=== PATIENT | male | born 1985 | race Two or more races ===

== ENCOUNTER 2023-07-17 12:49 | Day surgery (SDC) | payer OTHER, SELFPAY ==
[2023-07-17] VITALS (13 sets, daily range): BP systolic 107–126; BP diastolic 60–78; PULSE 81–97; RESP 16–20; TEMP 36.3–36.9; O2SAT 94–100; BMI 25.3
--- NOTE | ~2023-07-17 | CT_ITS ---
EXAMINATION: CT ABDOMEN AND PELVIS WITH CONTRAST CLINICAL INFORMATION: Lower abdominal pain. Night sweats. Diarrhea. COMPARISON: None. TECHNIQUE: Multidetector CT volumetric acquisition of the abdomen and pelvis was performed after the administration of 85 mL of intravenous Omnipaque 300. The data set was reformatted in the sagittal and coronal planes and reviewed on an independent workstation. This CT examination was performed using dose optimization techniques as appropriate, variously including the following: *Automated exposure control *Adjustment of mA and/or kV according to patient size (this includes techniques or standardized protocols for targeted exams where dose is matched to indication/reason for exam; i.e. extremities or head) *Use of iterative reconstruction technique DLP: 458.21 mGy-cm. FINDINGS: LOWER CHEST: Included lung bases unremarkable. LIVER, GALLBLADDER, BILIARY TREE: Liver normal size and attenuation. No focal cystic or solid mass or intra-or extrahepatic ductal dilatation. Hepatic and portal veins patent. Gallbladder partially distended. There may be subtle adenomyomatosis involving the gallbladder fundus. PANCREAS: Normal. No ductal dilatation, mass, or surrounding stranding. SPLEEN: Normal size and appearance. Splenic vein patent. ADRENAL GLANDS AND KIDNEYS: Adrenal glands normal. Kidneys bilaterally symmetric in size and function. No focal mass, hydronephrosis, nephrolithiasis or perinephric stranding. URETERS AND BLADDER: Ureters decompressed and within normal limits. Bladder partially distended and within normal limits. PELVIC ORGANS: Unremarkable. GASTROINTESTINAL TRACT: The appendix is abnormally dilated and fluid-filled, measuring up to 1 cm in diameter and demonstrating ill-defined circumferential enhancement and surrounding fat stranding and edema. Findings are consistent with acute appendicitis with surrounding mild phlegmonous changes but no focal abscess collection or appendiceal perforation. Small and large bowel loops decompressed. LYMPHOVASCULAR STRUCTURES: Abdominal aorta normal in caliber. No periaortic collections. No abdominal or pelvic adenopathy or free fluid collection. BONES: Unremarkable. CT/CT abdomen pelvis w IV con IMPRESSION: Findings are consistent with acute uncomplicated appendicitis. 3:15 PM This critical result was discussed with Dr. Lexi Batres 07/17/2023, and it was ascertained that the content and urgency of this report was understood at the time of direct communication.
[2023-07-17 13:12] LABS: MANUAL DIFF FLAG NO
[2023-07-17] MEDS: ondansetron HCL 4 MG/2 ML VIAL IVPUSH (13:22)
[2023-07-17] MEDS: HYDROmorphone HCl 0.5 MG/0.5 ML SYRINGE IVPUSH (13:22)
[2023-07-17] MEDS: 0.9 % Sodium Chloride 1,000 ML 999 ML IV ×2 (13:22)
[2023-07-17 13:23] LABS: Basophils Percent Auto 0.2 % (0-2); Eosinophils Absolute Auto 0.1 X10*3/uL (0.0-0.4); Eosinophils Percent Auto 0.5 % (0-4); Hematocrit 42.1 % (42.0-52.0); Hemoglobin 14.2 g/dl (14.0-18.0); Imm Gran Abs Auto 0.06 X10*3/uL (0.00-0.03); Imm Gran Pct Auto 0.4 % (0.0-0.4); Lymphocytes Absolute Auto 1.2 X10*3/uL (1.2-4.9); Lymphocytes Percent Auto 8.8 % (20-40); Mean Corpuscular HGB Conc 33.7 g/dl (31.0-36.0); Mean Corpuscular Hemoglobin 28.6 pg (27.0-33.0); Mean Corpuscular Volume 84.9 fL (80.0-98.0); Monocytes Absolute Auto 0.8 X10*3/uL (0.1-1.2); Monocytes Percent Auto 6.1 % (2-11); Neutrophils Absolute Auto 11.5 x10*3/uL (2.0-8.3); Platelet Count 165 X10*3/uL (160-400); Red Blood Count 4.96 X10*6/uL (4.60-5.80); Red Cell Distribution Width 13.3 % (11.0-16.0); White Blood Count 13.7 X10*3/uL (4.8-10.8)
[2023-07-17 13:25] LABS: Lactic Acid 0.8 mmol/L (0.5-2.0)
[2023-07-17 13:37] LABS: Alanine Aminotransferase 21 U/L (0-40); Albumin Level 4.5 g/dL (3.5-5.0); Alkaline Phosphatase 59 U/L (39-117); Anion Gap 12 (12-20); Aspartate Amino Transferase 15 U/L (5-37); Bilirubin Direct 0.4 mg/dL (0.0-0.5); Bilirubin Total 1.4 mg/dL (0.0-1.0); Blood Urea Nitrogen 12 mg/dL (9-16); C Reactive Protein 26.26 mg/dL (< or = 0.50); Calcium 9.9 mg/dL (8.4-10.2); Carbon Dioxide 27 mmol/L (22-29); Chloride 104 mmol/L (96-108); Estimated Glomerular Filt Rate > 60; Glucose Random 94 mg/dL (60-115); Iron 20 mcg/dL (45-160); Lipase 26 U/L (8-78); Magnesium 1.8 mg/dL (1.6-2.6); Percent Iron Saturation 10 % (15-50); Sodium 139 mmol/L (135-145); Total Iron Binding Capacity 200 mcg/dL (228-428); Total Protein 7.9 g/dL (6.5-8.0); Unsaturated Iron Binding 180 ug/dL
--- NOTE | 2023-07-17 13:43 | ED.ABDPAIN ---
HPI - Abdominal Pain General Chief Complaint: Abdominal Pain Stated Complaint: acute abd pain Time Seen by Provider: 07/17/23 12:54 Source: patient and family Mode of arrival: ambulatory Limitations: no limitations History of Present Illness HPI narrative: 37 yo male no sig PMH here with c/o intermittent bouts of diffuse abdominal pain and diarrhea with night sweats that have happened 4 separate times since January each episode lasts 48 hours. This time the pain is so severe he cannot take it. He has loose stools as well. No prior work up, colonoscopy, hx of IBD in family. He denies travel or antibiotic use. MD elicited complaint: abdominal pain Pertinent past history: none Onset (ago): month(s) (months since January but started 48 hours ago this bout) Pain Consistency: colicky Location: diffuse Severity: severe Quality: cramping and stabbing Radiation: none Migration to: no migration Relieving factors: eating and movement Context: history of similar episodes Associated symptoms: nausea, chills and other (night sweats, loose stools) Related Data Allergies Allergy/AdvReac Type Severity Reaction Status Date / Time No Known Allergies Allergy Verified 07/17/23 12:53 Review of Systems Review of Systems Constitutional : No Weight loss, No Fever, pos Chills, pos sweats ENT/Mouth : No sore throat, No Rhinorrhea Eyes: No Swelling, No Redness Cardiovascular : No Chest Pain, No SOB, NoEdema Respiratory : No Cough, No Sputum, No Wheezing Gastrointestinal : Positive Nausea, no Vomiting, positive Diarrhea, positive abdominal Pain, No Hematochezia, No Melena Genitourinary : No Dysuria, No Urinary Frequency, No Hematuria, No Urgency Musculoskeletal : No joint pain, No Myalgias, No Joint Swelling Skin : No Skin Lesions, No rash Neuro : pos Weakness, No Numbness, No Dizziness, No Headache Psych : No Anxiety/Panic, No Depression All other systems reviewed and are negative. [facility] Past Medical History Attestation statement: The following information was validated with the patient. Source: old records reviewed Medical History High cholesterol Social History Social History Smoked in Last 30 Days: No Use of substances other than those prescribed or required for medical reasons: No Advance Directives: No Advance Directives Information Provided: Yes Physical Exam ED Vital Signs: Vital Signs - 24 hr 07/17/23 12:54 Pulse Rate 86 Respiratory Rate 18 Blood Pressure 124/77 Pulse Oximetry 100 Oxygen Delivery Method Room Air BMI result Body Mass Index 25.3 Appearance: Alert. Oriented X3. mild acute distress. Eyes: Pupils equal, round and reactive to light. ENT: Pharynx normal. Neck: Normal inspection. Neck supple. CVS: Normal heart rate and rhythm. Pulses normal. Respiratory: No respiratory distress. Breath sounds normal. Abdomen: Soft and diffuse ttp positive rebound no guaring Skin: Skin warm and dry. pale skin color. Normal skin turgor. Extremities: No lower extremity edema. No calf ttp Neuro: Oriented X 3. No motor deficit. No sensory deficit. Medical Decision Making Medical Decision Making [facility] Narrative: 37 yo male no sig PMH here with c/o intermittent bouts of abdominal pain loose stools has no known PMH and no prior work up no travel or food exposures at this time labs, IVF, IV dilaudid, CT scan ordered for possible mass, inflammatory bowel disease, appendicitis, or any other concerns. Differential Diagnosis Differential Diagnoses: The differential diagnosis associated with the presentation includes IBD, IBS, abdominal pain Admission/Observation Consideration of admission/observation: Escalation of care including admission/observation considered admit for acute appendicitis - surgery has seen patient Consult Healthcare Provider Management of the patient was discussed with: Jelly Filter Tender (Dr. Silva aware will admit) Lab Data [facility] Lab Attestation statement: I reviewed the patient's lab results. 07/17/23 13:06 07/17/23 13:06 Labs: Lab Results 07/17/23 Range/Units 13:06 WBC 13.7 H (4.8-10.8) X10*3/uL RBC 4.96 (4.60-5.80) X10*6/uL Hgb 14.2 (14.0-18.0) g/dl Hct 42.1 (42.0-52.0) % MCV 84.9 (80.0-98.0) fL MCH 28.6 (27.0-33.0) pg MCHC 33.7 (31.0-36.0) g/dl RDW 13.3 (11.0-16.0) % Plt Count 165 (160-400) X10*3/uL MPV 11.0 (9.4-12.4) fL Immature Gran % (Auto) 0.4 (0.0-0.4) % Neut % (Auto) 84.0 H (45-73) % Lymph % (Auto) 8.8 L (20-40) % [place] % (Auto) 6.1 (2-11) % Eos % (Auto) 0.5 (0-4) % Baso % (Auto) 0.2 (0-2) % Lymph # (Auto) 1.2 (1.2-4.9) X10*3/uL [place] # (Auto) 0.8 (0.1-1.2) X10*3/uL Eos # (Auto) 0.1 (0.0-0.4) X10*3/uL Baso # (Auto) 0.0 (0.0-0.2) X10*3/uL Abs Immat Gran (auto) 0.06 H (0.00-0.03) X10*3/uL Absolute Neuts (auto) 11.5 H (2.0-8.3) x10*3/uL Absolute Nucleated RBC 0.000 (0.0-0.012) X10*3/uL Nucleated RBC % (auto) 0.0 (0.0-0.2) /100WBC ESR 37 H (0-15) MM/HR Sodium 139 (135-145) mmol/L Potassium 4.0 (3.3-5.1) mmol/L Chloride 104 (96-108) mmol/L Carbon Dioxide 27 (22-29) mmol/L Anion Gap 12 (12-20) BUN 12 (9-16) mg/dL Creatinine 0.94 (0.5-1.4) mg/dL Estim Creat Clear Calc 111.0 Estimated GFR > 60 Random Glucose 94 (60-115) mg/dL Lactic Acid 0.8 (0.5-2.0) mmol/L Calcium 9.9 (8.4-10.2) mg/dL Magnesium 1.8 (1.6-2.6) mg/dL Iron 20 L (45-160) mcg/dL TIBC 200 L (228-428) mcg/dL % Saturation 10 L (15-50) % Unsat Iron Binding 180 ug/dL Ferritin 271 H (20-250) ng/mL Total Bilirubin 1.4 H (0.0-1.0) mg/dL Direct Bilirubin 0.4 (0.0-0.5) mg/dL AST 15 (5-37) U/L ALT 21 (0-40) U/L Alkaline Phosphatase 59 (39-117) U/L C-Reactive Protein 26.26 H (< or = 0.50) mg/dL Total Protein 7.9 (6.5-8.0) g/dL Albumin 4.5 (3.5-5.0) g/dL Lipase 26 (8-78) U/L Procalcitonin 0.55 ng/mL Independent Interpretation I performed an independent interpretation of an: CT Scan Radiology Impression Discussion of test interpretation with radiology: I discussed test interpretation with the radiologist and I have reviewed the radiologist's reading. Radiologist Impression: call from Radiology 316pm abnormality RLQ ?acute appendicitis dilated fluid appendix fat stranding and edema no abscess or perforation. Independent Historian Clinical information obtained from an independent historian. History obtained from or confirmed by: Parent Medications Administered Discontinued Medications Generic Name Dose Route Start Last Admin Trade Name Freq PRN Reason Stop Dose Admin Hydromorphone HCl 0.5 mg 07/17/23 12:54 07/17/23 13:22 Hydromorphone Hcl 0.5 Mg/0.5 Ml Syringe IVPUSH 07/17/23 12:55 0.5 mg ONCE ONE Administration Protocol Sodium Chloride 1,000 mls @ 999 mls/hr 07/17/23 13:00 07/17/23 13:22 Ns IV 07/17/23 14:00 999 mls/hr .Q1H1M DORCAS Administration Sodium Chloride 1,000 mls @ 999 mls/hr 07/17/23 13:00 07/17/23 13:22 Ns IV 07/17/23 14:00 999 mls/hr .Q1H1M DORCAS Administration Iohexol 85 ml 07/17/23 13:50 07/17/23 13:51 Iohexol 350 Mg/Ml 100 Ml Infus..Btl IV 07/17/23 13:51 85 ml ONCE ONE Administration Ondansetron HCl 4 mg 07/17/23 12:54 07/17/23 13:22 Ondansetron Hcl 4 Mg/2 Ml Vial IVPUSH 07/17/23 12:55 4 mg ONCE ONE Administration Critical Care Time Critical Care Time Critical Care Time: Yes Total Critical Care Time: 40 Attestation: IVF x 2L, pain improved after IV dilaudid I attest to this time spent taking care of the patient Discharge Plan Discharge Clinical Impression: Abdominal pain Qualifiers: Abdominal location: right lower quadrant Qualified Code(s): R10.31 - Right lower quadrant pain Acute appendicitis Qualifiers: Acute appendicitis type: with localized peritonitis Appendicitis gangrene presence: without gangrene Appendicitis perforation presence: without perforation Appendicitis abscess presence: without abscess Qualified Code(s): K35.30 - Acute appendicitis with localized peritonitis, without perforation or gangrene Patient Disposition: Admitted As Inpatient
[2023-07-17 13:51] LABS: Ferritin 271 ng/mL (20-250); Procalcitonin 0.55 ng/mL
[2023-07-17] MEDS: iohexoL 350 MG/ML 100 ML INFUS..BTL 85 ML IV (13:51)
[2023-07-17 14:08] LABS: Erythrocyte Sedimentation Rate 37 MM/HR (0-15)
[2023-07-17] MEDS: Piperacillin Sodium/Tazobactam 3.375 GM in 0.9 % Sodium Chloride 50 ML IV (15:41)
[2023-07-17] MEDS: 0.9 % Sodium Chloride 1,000 ML 100 ML IVCONT (15:50)
--- NOTE | 2023-07-17 16:46 | PC.NURSE ---
patient a&ox3, iv inserted, labs drawn, pt imaging done, pt iv abx hung per order, pt medicated with pain meds per order. pt changed over into hospital attire for OR, Dr. Silva came to bedside and transported patient himself to the OR with pts father, pts father took all belongings home--belonging list was not completed as the surgeon took the patient before it could be done.
--- NOTE | 2023-07-17 17:46 | PM.HPGS ---
History of Present Illness History of Present Illness Date of Service: 07/17/23 Chief complaint: acute abd pain Narrative: Ryanne Cueva is a 37 year old male with a history of several bouts of abdominal pain who presents here with any new bout which was of upper abdominal discomfort which has now relocated to the lower abdomen especially right lower quadrant. Because of progression of symptoms, he presented emergency department. Workup including CT scan of abdomen demonstrates findings consistent with acute appendicitis. Chart was reviewed patient evaluated [facility] Past Medical History Medical History High cholesterol Social History Social History Smoked in Last 30 Days: No Use of substances other than those prescribed or required for medical reasons: No Advance Directives: No Advance Directives Information Provided: Yes Meds Allergies Allergy/AdvReac Type Severity Reaction Status Date / Time No Known Allergies Allergy Verified 07/17/23 12:53 Active Medications: Current Medications Fentanyl (Fentanyl Citrate/Pf 100 Mcg/2 Ml Vial) 25 mcg IVPUSH Q5M PRN; Protocol PRN Reason: Pain, Moderate(Pain Scale 4-6) Sodium Chloride (Ns) 1,000 mls @ 100 mls/hr IVCONT .Q10H DORCAS Last Admin: 07/17/23 15:50 Dose: 100 mls/hr Ondansetron HCl (Ondansetron Hcl 4 Mg/2 Ml Vial) 4 mg IVPUSH ONCE PRN PRN Reason: Nausea and Vomiting Oxycodone HCl (Oxycodone Hcl Immed Release 5 Mg Tablet) 5 mg PO ONCE PRN PRN Reason: Pain, Severe (Pain Scale 7-10) Physical Exam Vital Signs: Vital Signs: Last Vital Signs Temp 98.4 F 07/17/23 15:53 Pulse 93 07/17/23 15:53 Resp 18 07/17/23 15:53 BP 113/78 07/17/23 15:53 Pulse Ox 99 07/17/23 15:53 O2 Del Method Room Air 07/17/23 15:53 BMI result Body Mass Index 25.3 Chest: Other: Chest breath sounds bilaterally, HS 1 in 2 GI: Other: Tender lower abdomen. Marked right lower quadrant rebound tenderness. Results Results Labs: Short CBC 07/17/23 Range/Units 13:06 WBC 13.7 H (4.8-10.8) X10*3/uL Hgb 14.2 (14.0-18.0) g/dl Hct 42.1 (42.0-52.0) % Plt Count 165 (160-400) X10*3/uL BMP 07/17/23 13:06 Sodium 139 Potassium 4.0 Chloride 104 Carbon Dioxide 27 BUN 12 Creatinine 0.94 Calcium 9.9 Liver Function 07/17/23 Range/Units 13:06 Total Bilirubin 1.4 H (0.0-1.0) mg/dL Direct Bilirubin 0.4 (0.0-0.5) mg/dL AST 15 (5-37) U/L ALT 21 (0-40) U/L Alkaline Phosphatase 59 (39-117) U/L Albumin 4.5 (3.5-5.0) g/dL Assessment and Plan (1) Acute appendicitis: Qualifiers: Acute appendicitis type: with localized peritonitis Appendicitis abscess presence: without abscess Appendicitis gangrene presence: without gangrene Appendicitis perforation presence: without perforation Qualified Code(s): K35.30 - Acute appendicitis with localized peritonitis, without perforation or gangrene Status: Acute Plan Clinical findings and CT scan consistent with acute appendicitis. Risks, benefits, alternatives of laparoscopic possible open appendectomy reviewed with the patient which included but not limited to bleeding, infection, numbness, pain, scarring and the patient was to proceed. All questions answered. Arrangements were made for this for today. Quality Stroke Does the patient have a stroke diagnosis?: No VTE Prior VTE?: No VTE Risk Level:: Surgical - low VTE Device Contraindication: Treatment Not Indicated VTE Drug Contraindication: Treatment Not Indicated Procedures Date of Service Date of Service: 07/17/23
--- NOTE | 2023-07-17 18:34 | W.PM.OPN ---
Operative Note Operative Note Date of Service: 07/17/23 Narrative: Preoperative diagnosis: [] Acute appendicitis Postop diagnosis: [] same Procedure [] laparoscopic appendectomy Surgeon: [] [facility] Director: [] Type of Anesthesia: [] General Indication for surgery: [] Edematous inflamed retrocecal appendix. No gross evidence of perforation. No other gross intra-abdominal pathology demonstrated. Findings: [] Patient brought to the operating room, placed on operative table supine position, after adequate level of general anesthesia was induced, the patient's abdomen was prepped and draped in usual sterile fashion. Using a supraumbilical curvilinear incision, Rey technique was used to insufflate the abdominal cavity to 15 mm of CO2 lower midline and suprapubic ports were placed under direct laparoscopic view, and the patient placed in reverse Trendelenburg position, and tilted to the left. Findings were as noted above. Appendix was retrocecal area and was brought onto the field. Its mesentery was sequentially taken down using double firing of ligature device. Appendix was then transected at the cecal base using endoscopic MARLON stapler. Specimen was placed in an Endo-Catch bag, a retrieved through the umbilical port. Abdominal cavity was copiously irrigated and secured hemostasis. All ports removed under direct laparoscopic view. Wounds were closed in the following manner; umbilical wound is fascia reapproximated using interrupted 0 Vicryl sutures. Skin wounds were closed using subcuticular 4-0 Vicryl sutures followed by Steri-Strips and sterile dressings. Wounds were infiltrated 0.5% Marcaine at completion. Sponge, needle, and instrument counts reported correct. Patient tolerated the procedure well and emerged anesthesia stable condition. EBL minimal
[2023-07-17] MEDS: oxyCODONE HCl Immed Release 5 MG TABLET PO (18:52)
[2023-07-17] MEDS: fentaNYL citrate/PF 100 MCG/2 ML VIAL 25 MCG IVPUSH ×2 (18:54→19:00)
[2023-07-17] MEDS: Acetaminophen 1,000 MG/100 ML PIGGYBACK 400 MG IV (19:00)
--- NOTE | 2023-07-19 11:40 | HO.POSTANES ---
Post Anesthesia Evaluation Post Anesthesia Evaluation Date of Service: 07/17/23 Anesthesia: General Endotracheal-GETA Mental Status: Awake Pain Control: Satisfactory Nausea/Vomiting: None Hydration: Adequate Anesthesia-Related Issues: No Anes. Related Issues
== END 2023-07-17 20:35 | disposition home or self-care (01) ==
LOC: HO.ED 15:19 → HO.SSS 16:20
PROVIDERS: Emergency Provider Emergency Medicine; Visit Provider Surgery
PROC: 0DTJ4ZZ Resection of Appendix, Percutaneous Endoscopic Approach (ICD-10-PCS; CPT 44970; principal; 2023-07-17 17:00)
DX: K35.30 Acute appendicitis with localized peritonitis, without perforation or gangrene (principal); E78.5 Hyperlipidemia, unspecified; R10.30 Lower abdominal pain, unspecified; R19.7 Diarrhea, unspecified; R61 Generalized hyperhidrosis; R53.1 Weakness; R79.0 Abnormal level of blood mineral
CPT/HCPCS: 44970; 36415; 74177; 80048; 80076; 82728; 83540; 83605; 83690; 83735; 84145; 85025; 85652; 86140; 88304; 96361; 96365; 96375; 99285; J0131; J1100; J1170; J1885; J2250; J2405; J2543; J2704; J2795; J3010; Q9967

== ENCOUNTER → 2023-07-17 16:19 | Outpatient (BNV) | payer OTHER, SELFPAY | PROVIDERS: Emergency Provider Emergency Medicine; Visit Provider Surgery | DX: K35.30 Acute appendicitis with localized peritonitis, without perforation or gangrene (principal) | CPT/HCPCS: 44970; 99284 ==

== ENCOUNTER 2023-08-13 12:37 | Outpatient (AMB) | payer OTHER, SELFPAY ==
[2023-08-13 12:54] VITALS: BP 130/77; PULSE 66
--- NOTE | 2023-08-13 12:54 | A.OFFVIS_ITS ---
Intake Vital Signs 08/13/23 12:54 Weight 172 lb BP 130/77 Blood Pressure Location Rt brachial Position Sitting Pulse 66 Intake Visit Reasons: S/P appendectomy Intake Note: Patient here s/p appendectomy. Reports incisions healing slowly. Patient c/o redness, tenderness to touch. Senior Benefits Specialist Required: No Accompanied by: Self / Same As Patient Allergies No Known Allergies Allergy (Verified 08/13/23 12:55) HPI HPI Comments History of Present Illness Details Patient is status post appendectomy few weeks ago. [place] and has returned for other reasons and presents here for follow-up. He is doing well. He has tolerating a diet he is having regular bowel habits. He has minimal incisional discomfort. [facility] Medical History High cholesterol Surgical History (Updated 08/13/23 @ 14:04 by Nguyễn Silva MD) History of laparoscopic appendectomy (07/17/23) Physical Exam Vital Signs: Last Vital Signs Pulse 66 08/13/23 12:54 BP 130/77 08/13/23 12:54 GI Other: Abdomen soft. All wounds clean dry and intact. Abdomen otherwise benign. Assessment & Plan Assessment & Plan (1) Status post appendectomy, follow-up exam: Code(s): Z09 - Encounter for follow-up examination after completed treatment for conditi ons other than malignant neoplasm Plan Patient has been given local wound instructions, and will follow-up p.r.n. or with local physicians when he returns home. Coding Level of Care Code Global (35221) Diagnoses Status post appendectomy, follow-up exam Z09
== END 2023-08-13 12:57 | disposition home or self-care (01) ==
LOC: HO.HGS 12:37
PROVIDERS: Visit Provider Surgery
DX: Z09 Encounter for follow-up examination after completed treatment for conditions other than malignant neoplasm (principal)
CPT/HCPCS: 99024

== ENCOUNTER → 2023-08-13 12:37 | Outpatient (BNVA) | payer OTHER, SELFPAY | PROVIDERS: Visit Provider Surgery ==